=== PATIENT | male | born 1965 | race Caucasian/White ===

== ENCOUNTER 2018-06-27 13:19 | Inpatient (IN) ==
[2018-06-27] MEDS ORDERED: Mag Sulf 1 gm/100 ml Premix 100 ML IV.SIG ONE (13:23)
[2018-06-27] MEDS ORDERED: MethylPREDNISolone Sod Succinate Inj 125 MG/2 ML Vial IV.PUSH ONE (13:23)
--- NOTE | 2018-06-27 13:28 | ED ---
HPI General Chief Complaint: Respiratory Symptoms Stated Complaint: respiratory Time Seen by Provider: 06/27/18 13:23 Source: patient Mode of arrival: wheelchair Limitations: other (Severity) History of Present Illness Patient states that he had shortness of breath over the past 2 days onset last night. Patient has been intubated 5 times in the past for similar COPD exacerbations. However he decided that this time he would come in sooner rather than later. Patient states that he is not oxygen dependent. MD Complaint: Reports shortness of breath Onset (ago): day(s) Context: Reports recent illness Severity: severe Consistency/Duration: constant Relieving factors: bronchodilators Exacerbating factors: nothing Known history of: Reports COPD Associated symptoms: Reports denies other symptoms Treatment prior to arrival: Reports none Related Data Home oxygen amount: none Home Medications Medication Instructions Recorded Confirmed warfarin [Coumadin] 5 mg PO Q OTHER DAY 06/27/18 06/27/18 warfarin [Coumadin] 7.5 mg PO Q OTHER DAY 06/27/18 06/27/18 Allergies Allergy/AdvReac Type Severity Reaction Status Date / Time No Known Allergies Allergy Verified 06/27/18 13:56 Review of Systems ROS Unobtainable ROS Unobtainable: other (Unobtainable due to severity of distress) PMFSH History History Provided By: Patient Medical History Medical History COPD (chronic obstructive pulmonary disease) (Acute) Chest pain (Acute) PTSD (post-traumatic stress disorder) (Acute) Pulmonary embolism (Acute) Surgical History Surgical History Hx of CABG (Acute) Social History Social History Substance History: No History of Abuse Smoking Status: Never smoker How Often Do You Have a Drink Containing Alcohol: Never Recent Travel in [place] within the Last 8 Weeks: No Recent Out of Country Travel within the Last 8 Weeks: No Exam Narrative Exam Narrative: GENERAL: -Portuguese male in severe respiratory distress SKIN: Warm and dry. HEAD: Atraumatic. Normocephalic. EYES: Pupils equal and round. No scleral icterus. No injection or drainage. ENT: No nasal bleeding or discharge. Mucous membranes pink and moist. NECK: Trachea midline. No JVD. CARDIOVASCULAR: Tachycardic rate regular rhythm. no rubs or gallops RESPIRATORY: Suprasternal accessory muscle use. Bilateral wheezing diffusely heard throughout lung darling on auscultation. Moderately decreased tidal volume bilaterally . Pursed lip breathing tripoding 1 word dyspnea GASTROINTESTINAL: Abdomen soft, non-tender, nondistended. No rebound or guarding MUSCULOSKELETAL: Extremities without clubbing, cyanosis, or edema. No obvious deformities. NEUROLOGICAL: Awake and alert. No obvious cranial nerve deficits. Motor grossly within normal limits. Five out of 5 muscle strength in the arms and legs. Normal speech. PSYCHIATRIC: Appropriate mood and affect; insight and judgment normal. Course Initial Documented Vital Signs Temperature 99.8 F H 06/27/18 13:23 Pulse Rate 110 H 06/27/18 13:23 Respiratory Rate 21 06/27/18 13:23 Blood Pressure 162/85 H 06/27/18 13:23 Pulse Oximetry 88 L 06/27/18 13:23 Last Documented Vital Signs Temperature 99.8 F H 06/27/18 13:28 Pulse Rate 107 H 06/27/18 14:36 Respiratory Rate 22 06/27/18 14:36 Blood Pressure 162/85 H 06/27/18 13:28 Pulse Oximetry 92 L 06/27/18 13:33 Critical Care Time Critical Care Time: Yes Total Critical Care Time: 60 Attestation: Aggregate critical care time was 60 minutes. Time to perform other separately billable procedures was not included in the critical care time. My time did not include minutes spent treating any other patients simultaneously or on activities that did not directly contribute to the patient's treatment. The services I provided to this patient were to treat and/or prevent clinically significant deterioration I provided critical care services requiring my management, as noted below: Chart data review, documentation time, medication orders and management, vital sign assessments/reviewing monitor data, ordering and reviewing lab tests, ordering and interpreting/reviewing x-rays and diagnostic studies, care of the patient and discussion of the patient with the admitting physicians. Medical Decision Making MDM Narrative Medical decision making narrative: No leukocytosis no anemia normal platelet count neutrophilia of 88% INR 2.7 Electrolytes within normal limits. Lactic acid normal. Elevated creatinine 1.74 decreased GFR consistent with renal insufficiency AST elevated at 200 and with normal ALT of 60 suspicious for alcohol related hepatitis Total CPK 6595 suggestive of rhabdo CK-MB and troponin negative Normal pancreatic enzymes Chest x-ray read by radiologist as patchy airspace disease right lower lobe On reevaluation the patient's pulse oximetry is reading 92% on 2 L after the patient received aggressive treatment with 2 hour-long nebulizer treatments, Solu-Medrol 125, magnesium 1 g, Rocephin IV, azithromycin IV,... Originally the patient's pulse ox was 85-88 on room air prior to all his breathing treatments and antibiotics Medical Screen Exam Complete: Yes Emergency Medical Condition: Yes Medical Records Medical records reviewed: Yes I reviewed the patient's medical records. Lab Data Result diagrams: 06/27/18 14:04 06/27/18 14:04 Lab Results 06/27/18 06/27/18 06/27/18 Range/Units 14:04 14:04 14:04 WBC 8.2 (4.0-11.0) th/mm3 RBC 5.13 (4.50-5.90) mil/mm3 Hgb 14.5 (13.0-17.0) gm/dL Hct 44.5 (39.0-51.0) % MCV 86.9 (80.0-100.0) fL MCH 28.3 (27.0-34.0) pg MCHC 32.6 (32.0-36.0) % RDW 14.0 (11.6-17.2) % Plt Count 275 (150-450) th/mm3 MPV 8.6 (7.0-11.0) fL Neut % (Auto) 87.8 H (16.0-70.0) % Lymph % (Auto) 8.3 L (9.0-44.0) % [place] % (Auto) 3.3 (0.0-8.0) % Eos % (Auto) 0.2 (0.0-4.0) % Baso % (Auto) 0.4 (0.0-2.0) % Neut # (Auto) 7.2 (1.8-7.7) th/mm3 Lymph # (Auto) 0.7 L (1.0-4.8) th/mm3 [place] # (Auto) 0.3 (0.0-0.9) th/mm3 Eos # (Auto) 0.0 (0.0-0.4) th/mm3 Baso # (Auto) 0.0 (0.0-0.2) th/mm3 WBC Differential . Differential Comment Auto diff final PT 27.2 H (9.8-11.6) sec INR 2.7 Ratio APTT 41.3 H (23.4-31.7) sec Sodium 141 (136-145) meq/L Potassium 4.0 (3.5-5.1) meq/L Chloride 106 (98-107) meq/L Carbon Dioxide 26.6 (21.0-32.0) meq/L Anion Gap 8 (5-15) meq/L BUN 19 H (7-18) mg/dL Creatinine 1.74 H (0.60-1.30) mg/dL Estimated GFR 41 L (>89) mL/min Random Glucose 114 H (74-106) mg/dL Lactic Acid (0.4-2.0) mmol/L Calcium 8.0 L (8.5-10.1) mg/dL Total Bilirubin 1.2 H (0.2-1.0) mg/dL AST 200 H (15-37) U/L ALT 60 (12-78) U/L Alkaline Phosphatase 61 (45-117) U/L Total Creatine Kinase 6595 H (39-308) U/L CK-MB (CK-2) 63.3 H (0.5-3.6) ng/mL CK-MB (CK-2) % 1.0 (0.0-4.0) % Troponin I Less than 0.02 L (0.02-0.05) ng/mL B-Natriuretic Peptide (0-100) pg/mL Total Protein 7.5 (6.4-8.2) g/dL Albumin 3.8 (3.4-5.0) g/dL Lipase 55 L (73-393) U/L 06/27/18 06/27/18 Range/Units 14:04 14:53 WBC (4.0-11.0) th/mm3 RBC (4.50-5.90) mil/mm3 Hgb (13.0-17.0) gm/dL Hct (39.0-51.0) % MCV (80.0-100.0) fL MCH (27.0-34.0) pg MCHC (32.0-36.0) % RDW (11.6-17.2) % Plt Count (150-450) th/mm3 MPV (7.0-11.0) fL Neut % (Auto) (16.0-70.0) % Lymph % (Auto) (9.0-44.0) % [place] % (Auto) (0.0-8.0) % Eos % (Auto) (0.0-4.0) % Baso % (Auto) (0.0-2.0) % Neut # (Auto) (1.8-7.7) th/mm3 Lymph # (Auto) (1.0-4.8) th/mm3 [place] # (Auto) (0.0-0.9) th/mm3 Eos # (Auto) (0.0-0.4) th/mm3 Baso # (Auto) (0.0-0.2) th/mm3 WBC Differential Differential Comment PT (9.8-11.6) sec INR Ratio APTT (23.4-31.7) sec Sodium (136-145) meq/L Potassium (3.5-5.1) meq/L Chloride (98-107) meq/L Carbon Dioxide (21.0-32.0) meq/L Anion Gap (5-15) meq/L BUN (7-18) mg/dL Creatinine (0.60-1.30) mg/dL Estimated GFR (>89) mL/min Random Glucose (74-106) mg/dL Lactic Acid 1.5 (0.4-2.0) mmol/L Calcium (8.5-10.1) mg/dL Total Bilirubin (0.2-1.0) mg/dL AST (15-37) U/L ALT (12-78) U/L Alkaline Phosphatase (45-117) U/L Total Creatine Kinase (39-308) U/L CK-MB (CK-2) (0.5-3.6) ng/mL CK-MB (CK-2) % (0.0-4.0) % Troponin I (0.02-0.05) ng/mL B-Natriuretic Peptide 47 (0-100) pg/mL Total Protein (6.4-8.2) g/dL Albumin (3.4-5.0) g/dL Lipase (73-393) U/L Imaging Data Radiologist's impression: Chest X-Ray 06/27/18 13:23 CONCLUSION: Patchy airspace disease right lower lobe suspicious for inflammatory process Discharge Plan Discharge Disposition Patient Disposition: ED Admit(ED Internal Use Only) Discharge Condition Condition: Fair Discharge Details Diagnosis: COPD exacerbation, Hypoxemia, RLL pneumonia Physicians Team ED Provider: Rosalio Mckee Primary Care Provider: [facility] /Orders / Referrals /Forms Prescriptions: No Action warfarin [Coumadin] 7.5 mg Tablet 7.5 mg PO Q OTHER DAY RF: 0 warfarin [Coumadin] 5 mg Tablet 5 mg PO Q OTHER DAY RF: 0 Status ED Status: With Doctor
--- NOTE | 2018-06-27 13:50 | XR ---
EXAM DATE: 06/27/2018 1:47 PM EST AGE/SEX: 53 years / Male INDICATIONS: Short of breath. CLINICAL DATA: This is the patient's initial encounter. Patient reports that signs and symptoms have been present for 1 day and indicates a pain score of 0/10. MEDICAL/SURGICAL HISTORY: Cardiovascular disease. CABG. COMPARISON: No prior exams available for comparison. FINDINGS: Sternal wires from previous bypass are noted. The heart is minimally enlarged. The left lung is clear Patchy alveolar airspace disease in the right lower lobe suspicious for inflammatory process. There is no pneumothorax or pleural effusion The portion of the bony skeleton visualized is unremarkable. CONCLUSION: Patchy airspace disease right lower lobe suspicious for inflammatory process Electronically signed by: Reuben Romano MD Board Certified Radiologist 06/27/2018 1:49 PM EST
[2018-06-27] MEDS ORDERED: Azithromycin Inj 500 MG in Sodium Chlor 0.9% Inj 250 ML IV.SIG ONE (14:03)
[2018-06-27] MEDS ORDERED: Famotidine PF Inj 20 MG/2 ML Vial IV.PUSH ONE (14:09)
[2018-06-27] MEDS ORDERED: Sodium Chlor 0.9% Inj 500 ML IV.SIG SCH (15:00)
[2018-06-27 15:26] LABS: Baso % (Auto) 0.4 % (0.0-2.0); Eos % (Auto) 0.2 % (0.0-4.0); Hematocrit 44.5 % (39.0-51.0); Hemoglobin 14.5 gm/dL (13.0-17.0); Lymph # (Auto) 0.7 th/mm3 (1.0-4.8); Lymph % (Auto) 8.3 % (9.0-44.0); Mean Corpuscular HGB Conc 32.6 % (32.0-36.0); Mean Corpuscular Hemoglobin 28.3 pg (27.0-34.0); Mean Corpuscular Volume 86.9 fL (80.0-100.0); Mean Platelet Volume 8.6 fL (7.0-11.0); Mono # (Auto) 0.3 th/mm3 (0.0-0.9); Mono % (Auto) 3.3 % (0.0-8.0); Neut # (Auto) 7.2 th/mm3 (1.8-7.7); Neut % (Auto) 87.8 % (16.0-70.0); Platelet Count 275 th/mm3 (150-450); Red Blood Count 5.13 mil/mm3 (4.50-5.90); White Blood Count 8.2 th/mm3 (4.0-11.0)
[2018-06-27 15:30] LABS: Activated Partial Thrombo Time 41.3 sec (23.4-31.7); INR 2.7 Ratio; Prothrombin Time 27.2 sec (9.8-11.6)
[2018-06-27 15:35] LABS: Alanine Aminotransferase 60 U/L (12-78); Albumin 3.8 g/dL (3.4-5.0); Anion Gap 8 meq/L (5-15); Aspartate Aminotransferase 200 U/L (15-37); Blood Urea Nitrogen 19 mg/dL (7-18); Carbon Dioxide 26.6 meq/L (21.0-32.0); Chloride 106 meq/L (98-107); Glomerular Filtration Rate 41 mL/min (>89); Glucose,Random 114 mg/dL (74-106); Lipase 55 U/L (73-393); Sodium 141 meq/L (136-145)
[2018-06-27 15:49] LABS: Alkaline Phosphatase 61 U/L (45-117); Creatine Kinase 6595 U/L (39-308); Total Protein 7.5 g/dL (6.4-8.2)
[2018-06-27 16:02] LABS: Creatine Kinase MB 63.3 ng/mL (0.5-3.6)
[2018-06-27] MEDS ORDERED: Warfarin Consult Pharmacy OTHER PRN (16:35)
--- NOTE | 2018-06-27 16:47 | P.HPIM ---
History of Present Illness Primary Care Physician: [facility] Chief Complaint: shortness of breath History of Present Illness: patient is a 53 y/o male with history of PE,CAD,COPD ,PTSD who presented to ER with shortness of breath. he says that his sob started yesterday and got worse. he says that he has a nebulizer but it's broken. he has productive cough of yellowish sputum. he had a low grade fever at presentation. he denies any chest pain. he says that he was intubated in the past because of his COPD.per ER his pulse ox was about 88% at the time of presentation. Inpatient Certification Inpatient Certification: I certify that the inpatient services were ordered in accordance with Medicare regulations governing the order. This includes certification that hospital inpatient services are reasonable and necessary and in the case of services not specified as inpatient-only under 42 CFR 419.22(n), that they are appropriately provided as inpatient services in accordance to with the 2-midnight benchmark under 43 CFR 412.3(e) Estimated Total Length of Stay (Days): 2 Plans for Post Hospital Care: Home Review of Systems Review of Systems: all other systems reviewed are negative [facility] Medical History Medical History COPD (chronic obstructive pulmonary disease) (Acute) Chest pain (Acute) PTSD (post-traumatic stress disorder) (Acute) Pulmonary embolism (Acute) Surgical History Surgical History Hx of CABG (Acute) Social History Social History Substance History: No History of Abuse Smoking Status: Never smoker How Often Do You Have a Drink Containing Alcohol: Never Recent Travel in [place] within the Last 8 Weeks: No Recent Out of Country Travel within the Last 8 Weeks: No Immunization History Tetanus Immunization: >5 Years Medications and Allergies Allergies Allergy/AdvReac Type Severity Reaction Status Date / Time No Known Allergies Allergy Verified 06/27/18 13:56 Home Medications Medication Instructions Recorded Confirmed Type fluoxetine 40 mg PO DAILY 06/27/18 06/27/18 History folic acid 1 mg PO DAILY 06/27/18 06/27/18 History prazosin 2 mg PO HS 06/27/18 06/27/18 History quetiapine 400 mg PO HS 06/27/18 06/27/18 History thiamine HCl (vitamin B1) 100 mg PO DAILY 06/27/18 06/27/18 History warfarin See Label Instructions .ROUTE 06/27/18 06/27/18 History .COMPLEX warfarin [Coumadin] 7.5 mg PO Q OTHER DAY 06/27/18 06/27/18 History Active Medications: Active Medications Albuterol (Albuterol Neb (Prn)) 1.25 mg NEB Q2HR NEB PRN PRN Reason: sob Albuterol (Duoneb Neb (Lamar)) 1 ampul NEB Q4HR NEB LAMAR Azithromycin 500 mg/ Sodium (Chloride) 250 mls @ 250 mls/hr IV.SIG Q24H [facility] Ceftriaxone Sodium 1,000 mg/ (Sodium Chloride) 100 mls @ 200 mls/hr IV.SIG Q24H [facility] Sodium Chloride (Ns Inj) 1,000 mls @ 125 mls/hr IV.CONT .Q8H [facility] Methylprednisolone Sodium Succinate (Solumedrol Inj) 60 mg IV.PUSH Q8HR [facility] Pharmacy Profile Note (Coumadin Consult Pharmacy) 1 each OTHER UNSCH PRN PRN Reason: PHARMACY DOCUMENTATION Sodium Chloride (Ns Flush) 2 ml IV.FLUSH UNSCH PRN PRN Reason: FLUSH AFTER USING IV ACCESS Physical Exam Vital signs: Vital Signs 06/27/18 13:23 06/27/18 13:28 06/27/18 13:31 Temperature 99.8 F H 99.8 F H Pulse Rate 110 H 104 H 103 H Respiratory Rate 21 18 Blood Pressure 162/85 H 162/85 H Pulse Oximetry 88 L 91 L 941 H 06/27/18 13:32 06/27/18 13:33 06/27/18 13:37 Temperature Pulse Rate 101 H 99 H Respiratory Rate 22 20 Blood Pressure Pulse Oximetry 91 L 92 L 06/27/18 14:04 06/27/18 14:18 06/27/18 14:25 Temperature Pulse Rate 99 H 109 H 108 H Respiratory Rate 22 22 22 Blood Pressure Pulse Oximetry 06/27/18 14:36 Temperature Pulse Rate 107 H Respiratory Rate 22 Blood Pressure Pulse Oximetry Intake & Output 06/26/18 06/27/18 06/27/18 18:59 06:59 18:59 Weight 98.43 kg Constitutional mild distress Routine HEENT Exam Eye: Present PERRL Routine Neck Exam Present supple Routine Respiratory Exam Present prolonged expiratory phase and wheezes Routine Cardiovascular Exam Present tachycardia Routine Abdominal Exam Present soft Routine Extremities Exam Comments: no pedal edema. Routine Neurological Exam Present alert and oriented X3 Results Labs CBC & Chem 7: 06/27/18 14:04 06/27/18 14:04 Imaging Impressions Chest X-Ray 06/27/18 13:23 CONCLUSION: Patchy airspace disease right lower lobe suspicious for inflammatory process Caprini VTE Risk Assessment Caprini VTE Risk Assessment: Moderate/High Risk (score >= 2) Caprini Risk Assessment Model: Point Value = 1 Point Value = 2 Point Value = 3 Point Value = 5 Age 41-60 Minor surgery BMI > 25 kg/m2 Swollen legs Varicose veins or History of unexplained or recurrent spontaneous Oral contraceptives or hormone replacement Sepsis (< 1 month) Serious lung disease, including pneumonia (< 1 month) Abnormal pulmonary function Acute myocardial infarction Congestive heart failure (< 1 month) History of inflammatory bowel disease Medical patient at bed rest Age 61-74 Arthroscopic surgery Major open surgery (> 45 min) Laparoscopic surgery (> 45 min) Malignancy Confined to bed (> 72 hours) Immobilizing plaster cast Central venous access Age >= 75 History of VTE Family history of VTE Factor V Leiden Prothrombin [id number] Lupus anticoagulant Anticardiolipin antibodies Elevated serum homocysteine Heparin-induced thrombocytopenia Other congenital or acquired thrombophilia Stroke (< 1 month) Elective arthroplasty Hip, pelvis, or leg fracture Acute spinal cord injury (< 1 month) Prophylaxis Regimen: Total Risk Factor Score Risk Level Prophylaxis Regimen 0-1 Low Early ambulation 2 Moderate Order ONE of the following: *Sequential Compression Device (SCD) *Heparin 5000 units SQ BID 3-4 Higher Order ONE of the following medications: *Heparin 5000 units SQ TID *Enoxaparin/Lovenox 40 mg SQ daily (WT < 150 kg, CrCl > 30 mL/min) *Enoxaparin/Lovenox 30 mg SQ daily (WT < 150 kg, CrCl > 10-29 mL/min) *Enoxaparin/Lovenox 30 mg SQ BID (WT < 150 kg, CrCl > 30 mL/min) AND/OR *Sequential Compression Device (SCD) 5 or more Highest Order ONE of the following medications: *Heparin 5000 units SQ TID (Preferred with Epidurals) *Enoxaparin/Lovenox 40 mg SQ daily (WT < 150 kg, CrCl > 30 mL/min) *Enoxaparin/Lovenox 30 mg SQ daily (WT < 150 kg, CrCl > 10-29 mL/min) *Enoxaparin/Lovenox 30 mg SQ BID (WT < 150 kg, CrCl > 30 mL/min) AND *Sequential Compression Device (SCD) Assessment and Plan Plan A/P - acute hypoxemic respiratory failure due to pneumonia ( community-acquired ) and COPD exacerbation keep on oxygen to keep O2sat > 90%- continue with IV antibiotics and neb treatment- continue IV steroids- will follow the cultures. -PE- on Coumadin with therapeutic INR will verify the home dosage and consult pharmacy to assist with dosing. -renal insufficiency with unknown duration start on IV fluid and monitor the renal function -rhabdomyolysis continue IV fluid- monitor the CPK level and renal function. -PTSD will verify and resume the home meds. DVT prophylaxis; on Coumadin. Discussed Condition With: ER physician and the patient. Discharge Planning: home when stable.
[2018-06-27] MEDS: Sod Chloride 0.9% Inj 1,000 ML IV.CONT SCH (18:01)
--- NOTE | 2018-06-27 19:42 | ECG ---
Date Performed: 06/27/2018 Time Performed: 15:06:48 PTAGE: 53 years EKG: SINUS TACHYCARDIA WITH FIRST DEGREE AV BLOCK NONSPECIFIC T-WAVE ABNORMALITY ABNORMAL ECG NO PREVIOUS TRACING DOCTOR: Kiersten Mendez Interpretating Date/Time 06/27/2018 19:40:30
[2018-06-27 19:52] LABS: Bacteria,Urine Occasional /hpf; Bilirubin,Urine Negative (Negative); Clarity,Urine Clear (Clear); Color,Urine Yellow (Yellw/Straw); Glucose,Urine (UA) 150 mg/dL (Negative); Leukocyte Esterase,Urine Moderate (Negative); Mucus,Urine Few /lpf (Occasional); Nitrite,Urine Negative (Negative); Specific Gravity,Urine 1.009 (1.002-1.035)
[2018-06-27 19:53] LABS: Amphetamine Screen,Urine Neg (Neg); Barbiturate Screen,Urine Neg (Neg); Cannabinoid Screen,Urine Neg (Neg); Cocaine Screen,Urine Neg (Neg)
[2018-06-27 19:55] LABS: Opiate Screen,Urine Neg (Neg)
[2018-06-27] MEDS: MethylPREDNISolone Sod Succinate Inj 125 MG/2 ML Vial IV.PUSH SCH (20:29)
[2018-06-28] MEDS: Sod Chloride 0.9% Inj 1,000 ML IV.CONT SCH ×3 (00:59→17:41)
[2018-06-28] MEDS: MethylPREDNISolone Sod Succinate Inj 125 MG/2 ML Vial IV.PUSH SCH ×3 (05:36→22:15)
[2018-06-28 06:25] LABS: Hemoglobin 12.2 gm/dL (13.0-17.0); Lymph # (Auto) 0.9 th/mm3 (1.0-4.8); Lymph % (Auto) 6.3 % (9.0-44.0); Mean Corpuscular HGB Conc 32.9 % (32.0-36.0); Mean Corpuscular Hemoglobin 28.1 pg (27.0-34.0); Mean Corpuscular Volume 85.4 fL (80.0-100.0); Mono % (Auto) 7.2 % (0.0-8.0); Neut # (Auto) 12.1 th/mm3 (1.8-7.7); Neut % (Auto) 86.5 % (16.0-70.0); Platelet Count 236 th/mm3 (150-450); Red Blood Count 4.34 mil/mm3 (4.50-5.90); Red Cell Distribution Width 13.8 % (11.6-17.2)
[2018-06-28 06:54] LABS: Alanine Aminotransferase 51 U/L (12-78); Albumin 2.7 g/dL (3.4-5.0); Anion Gap 5 meq/L (5-15); Aspartate Aminotransferase 110 U/L (15-37); Blood Urea Nitrogen 17 mg/dL (7-18); Calcium 8.1 mg/dL (8.5-10.1); Carbon Dioxide 24.7 meq/L (21.0-32.0); Chloride 112 meq/L (98-107); Glomerular Filtration Rate 62 mL/min (>89); Glucose,Random 117 mg/dL (74-106); Potassium 4.6 meq/L (3.5-5.1); Sodium 142 meq/L (136-145)
[2018-06-28 07:06] LABS: Alkaline Phosphatase 49 U/L (45-117); Creatine Kinase 3379 U/L (39-308); Total Protein 5.9 g/dL (6.4-8.2)
[2018-06-28 07:24] LABS: CKMB Percent 0.6 % (0.0-4.0); Creatine Kinase MB 21.4 ng/mL (0.5-3.6)
[2018-06-28] MEDS: FLUoxetine 20 MG Capsule PO SCH (09:18)
[2018-06-28] MEDS: Folic Acid 1 MG Tablet PO SCH (09:18)
[2018-06-28] MEDS: Azithromycin Inj 500 MG in Sodium Chlor 0.9% Inj 250 ML IV.SIG SCH (14:34)
--- NOTE | 2018-06-28 18:27 | P.PNIM ---
Subjective Interval history: In bed some sob, no fever or chills./ No n/v/d/c. No wheezing . Has some generalized pain . Some sob, No fever or chills. No abd pain Physical Exam Vital signs: Vital Signs 06/27/18 18:59 06/27/18 20:38 06/27/18 21:00 Temperature Pulse Rate 94 H 94 H 92 H Respiratory Rate 16 16 Blood Pressure 112/58 L Pulse Oximetry 96 06/27/18 22:00 06/27/18 23:00 06/27/18 23:44 Temperature 98 F Pulse Rate 89 87 86 Respiratory Rate 20 Blood Pressure 118/71 Pulse Oximetry 94 L 06/28/18 00:00 06/28/18 00:56 06/28/18 02:00 Temperature Pulse Rate 82 74 79 Respiratory Rate Blood Pressure Pulse Oximetry 06/28/18 03:00 06/28/18 04:00 06/28/18 05:00 Temperature 98.7 F Pulse Rate 74 71 74 Respiratory Rate 18 Blood Pressure 120/68 Pulse Oximetry 93 L 06/28/18 06:00 06/28/18 07:00 06/28/18 07:41 Temperature Pulse Rate 78 66 Respiratory Rate Blood Pressure Pulse Oximetry 97 06/28/18 07:43 06/28/18 07:47 06/28/18 07:50 Temperature Pulse Rate 96 H 68 Respiratory Rate 16 16 14 Blood Pressure 115/68 Pulse Oximetry 97 95 06/28/18 08:00 06/28/18 09:00 06/28/18 10:00 Temperature Pulse Rate 66 64 64 Respiratory Rate Blood Pressure Pulse Oximetry 06/28/18 11:00 06/28/18 12:00 06/28/18 13:00 Temperature 97.9 F Pulse Rate 63 64 68 Respiratory Rate 19 Blood Pressure 117/70 Pulse Oximetry 95 06/28/18 13:20 06/28/18 14:00 06/28/18 15:38 Temperature Pulse Rate 65 84 64 Respiratory Rate 18 Blood Pressure Pulse Oximetry 06/28/18 15:47 06/28/18 15:52 06/28/18 16:00 Temperature 97.0 F L Pulse Rate 83 82 74 Respiratory Rate 16 17 Blood Pressure 119/66 Pulse Oximetry 96 Intake & Output 06/27/18 06/28/18 06/28/18 18:59 06:59 18:59 Intake Total 950 / 950 1480 / 1480 1350 / 1350 Output Total 600 / 600 Balance 950 / 950 880 / 880 1350 / 1350 Weight 98.43 kg 99.3 kg 97.522 kg Intake: IV 950 / 950 1000 / 1000 1350 / 1350 NS Inj 1,000 ML @ 125 mls/hr IV 1000 / 1000 1000 / 1000 .CONT .Q8H [facility] Rx#:[id number] Azithromycin Inj 500 MG In NS 250 / 250 250 / 250 Inj 250 ML @ 250 mls/hr IV.SIG Q24H [facility] Rx#:[id number] Magnesium Sulfate 1 gm/D5W 100 100 / 100 ml Premix 100 ML @ 100 mls/hr IV.SIG ONCE ONE Rx#:[id number] NS Inj 500 ML @ 1000 mls/hr IV. 500 / 500 SIG BOLUS [facility] Rx#:[id number] Rocephin Inj 1,000 MG In NS Inj 100 / 100 100 / 100 100 ML @ 200 mls/hr IV.SIG Q24H [facility] Rx#:[id number] Oral 480 / 480 Output: Urine 600 / 600 Other: Weight On Admission 97.522 kg Narrative: GENERAL: Pleasant 53-year-old male, in bed appears in not acute distress, sleepy. CARDIOVASCULAR: Regular rate and rhythm. RESPIRATORY: No accessory muscle use. Clear to auscultation. Breath sounds equal bilaterally. GASTROINTESTINAL: Abdomen soft, non-tender, nondistended. Hepatic and splenic margins not palpable. MUSCULOSKELETAL: Extremities without clubbing, cyanosis, or edema. No obvious deformities. NEUROLOGICAL: Awake and alert. No obvious cranial nerve deficits. Motor grossly within normal limits. Normal speech. PSYCHIATRIC: Appropriate mood and affect; insight and judgment normal. Results Labs CBC & Chem 7: 06/28/18 05:41 06/28/18 05:47 Labs: Microbiology 06/27/18 18:00 Clean Catch Urine Urine Culture - Preliminary Immature growth - reincubate 06/27/18 14:45 Blood - Peripheral Aerobic Blood Culture - Preliminary No growth in 1 day 06/27/18 14:45 Blood - Peripheral Anaerobic Blood Culture - Preliminary No growth in 1 day 06/27/18 14:53 Blood - Peripheral Aerobic Blood Culture - Preliminary No growth in 1 day 06/27/18 14:53 Blood - Peripheral Anaerobic Blood Culture - Preliminary No growth in 1 day Assessment and Plan Plan Acute hypoxemic respiratory failure due to pneumonia ( community-acquired ) and COPD exacerbation keep on oxygen to keep O2sat > 90%- continue with IV antibiotics and neb treatment- continue IV steroids- will follow the cultures. -PE- on Coumadin with therapeutic INR will verify the home dosage and consult pharmacy to assist with dosing. Renal insufficiency with unknown duration start on IV fluid and monitor the renal function Rhabdomyolysis continue IV fluid- monitor the CPK level and renal function. -PTSD will verify and resume the home meds.
[2018-06-28] MEDS: Acetaminophen 325 MG Tablet PO PRN (18:37)
[2018-06-29] MEDS: Sod Chloride 0.9% Inj 1,000 ML IV.CONT SCH ×3 (00:28→17:43)
[2018-06-29] MEDS: MethylPREDNISolone Sod Succinate Inj 125 MG/2 ML Vial IV.PUSH SCH ×3 (05:13→21:34)
[2018-06-29] MEDS: FLUoxetine 20 MG Capsule PO SCH (09:51)
[2018-06-29] MEDS: Acetaminophen 325 MG Tablet PO PRN (09:51)
[2018-06-29] MEDS: Folic Acid 1 MG Tablet PO SCH (09:51)
[2018-06-29 10:26] LABS: Baso % (Auto) 0.1 % (0.0-2.0); Hematocrit 39.2 % (39.0-51.0); Hemoglobin 12.9 gm/dL (13.0-17.0); Lymph # (Auto) 0.9 th/mm3 (1.0-4.8); Lymph % (Auto) 6.6 % (9.0-44.0); Mean Corpuscular HGB Conc 32.9 % (32.0-36.0); Mean Corpuscular Hemoglobin 28.5 pg (27.0-34.0); Mean Corpuscular Volume 86.8 fL (80.0-100.0); Mean Platelet Volume 8.4 fL (7.0-11.0); Mono # (Auto) 0.6 th/mm3 (0.0-0.9); Mono % (Auto) 4.2 % (0.0-8.0); Neut # (Auto) 12.2 th/mm3 (1.8-7.7); Neut % (Auto) 89.1 % (16.0-70.0); Platelet Count 259 th/mm3 (150-450); Red Blood Count 4.51 mil/mm3 (4.50-5.90); Red Cell Distribution Width 14.1 % (11.6-17.2); White Blood Count 13.7 th/mm3 (4.0-11.0)
[2018-06-29 10:38] LABS: INR 3.6 Ratio; Prothrombin Time 36.7 sec (9.8-11.6)
[2018-06-29 10:50] LABS: Carbon Dioxide 24.5 meq/L (21.0-32.0)
[2018-06-29 11:20] LABS: CKMB Percent 0.5 % (0.0-4.0); Creatine Kinase MB 6.6 ng/mL (0.5-3.6)
[2018-06-29] MEDS: Azithromycin Inj 500 MG in Sodium Chlor 0.9% Inj 250 ML IV.SIG SCH (15:37)
[2018-06-30] MEDS: MethylPREDNISolone Sod Succinate Inj 125 MG/2 ML Vial IV.PUSH SCH ×2 (05:32→20:23)
[2018-06-30] MEDS: Sod Chloride 0.9% Inj 1,000 ML IV.CONT SCH ×2 (05:34→09:21)
[2018-06-30 08:33] LABS: Baso % (Auto) 0.1 % (0.0-2.0); Hemoglobin 12.6 gm/dL (13.0-17.0); Lymph % (Auto) 7.6 % (9.0-44.0); Mean Corpuscular HGB Conc 33.1 % (32.0-36.0); Mean Corpuscular Hemoglobin 28.3 pg (27.0-34.0); Mean Corpuscular Volume 85.3 fL (80.0-100.0); Mean Platelet Volume 8.8 fL (7.0-11.0); Mono % (Auto) 7.3 % (0.0-8.0); Neut # (Auto) 11.5 th/mm3 (1.8-7.7); Platelet Count 251 th/mm3 (150-450); Red Blood Count 4.46 mil/mm3 (4.50-5.90); Red Cell Distribution Width 13.8 % (11.6-17.2); White Blood Count 13.5 th/mm3 (4.0-11.0)
[2018-06-30 09:08] LABS: Carbon Dioxide 24.2 meq/L (21.0-32.0); INR 4.6 Ratio; Potassium 4.1 meq/L (3.5-5.1); Prothrombin Time 46.5 sec (9.8-11.6)
[2018-06-30] MEDS: FLUoxetine 20 MG Capsule PO SCH (09:20)
[2018-06-30] MEDS: Folic Acid 1 MG Tablet PO SCH (09:20)
[2018-06-30 09:21] LABS: Calcium 8.6 mg/dL (8.5-10.1)
[2018-06-30 09:37] LABS: CKMB Percent 0.3 % (0.0-4.0)
--- NOTE | 2018-06-30 12:20 | P.PNIM ---
Subjective Interval history: Late entry: the patient was seen on 06/29/2018 at noon The patient is still with sob and complaints of muscle cramps. No abd cramps able to eat. With nausea no vomiting. No fevr or chills. No urinary complaints. Physical Exam Vital signs: Vital Signs 06/29/18 13:00 06/29/18 14:00 06/29/18 15:00 Temperature Pulse Rate 80 64 60 Respiratory Rate Blood Pressure Pulse Oximetry 06/29/18 16:00 06/29/18 16:50 06/29/18 17:00 Temperature 98.7 F Pulse Rate 57 L 72 60 Respiratory Rate 16 16 Blood Pressure 161/86 H Pulse Oximetry 96 06/29/18 18:00 06/29/18 19:00 06/29/18 20:00 Temperature Pulse Rate 56 L 96 H 62 Respiratory Rate 16 Blood Pressure 143/79 H Pulse Oximetry 95 06/29/18 20:22 06/29/18 21:00 06/29/18 22:00 Temperature Pulse Rate 70 62 78 Respiratory Rate 18 Blood Pressure Pulse Oximetry 94 L 06/29/18 23:00 06/29/18 23:31 06/30/18 00:00 Temperature 98.5 F Pulse Rate 61 72 56 L Respiratory Rate 16 18 Blood Pressure 111/44 L Pulse Oximetry 95 06/30/18 01:00 06/30/18 02:00 06/30/18 03:00 Temperature Pulse Rate 70 70 66 Respiratory Rate Blood Pressure Pulse Oximetry 06/30/18 04:00 06/30/18 05:00 06/30/18 06:00 Temperature Pulse Rate 62 60 57 L Respiratory Rate Blood Pressure 144/78 H Pulse Oximetry 94 L 06/30/18 07:00 06/30/18 08:00 06/30/18 09:00 Temperature 98.3 F Pulse Rate 55 L 52 L 50 L Respiratory Rate 16 Blood Pressure 156/88 H Pulse Oximetry 95 06/30/18 09:12 06/30/18 10:00 06/30/18 11:00 Temperature Pulse Rate 56 L 52 L 59 L Respiratory Rate 24 Blood Pressure Pulse Oximetry 94 L 06/30/18 12:00 06/30/18 12:18 06/30/18 12:19 Temperature 98.2 F Pulse Rate 59 L 55 L Respiratory Rate 16 20 Blood Pressure 157/85 H Pulse Oximetry 94 L 96 Intake & Output 06/29/18 06/30/18 06/30/18 18:59 06:59 18:59 Intake Total 1850 / 1850 1180 / 1180 1000 / 1000 Output Total 820 / 820 1060 / 1060 Balance 1030 / 1030 120 / 120 1000 / 1000 Weight 103.1 kg Intake: IV 1100 / 1100 700 / 700 1000 / 1000 NS Inj 1,000 ML @ 125 mls/hr IV 1000 / 1000 700 / 700 1000 / 1000 .CONT .Q8H [facility] Rx#:[id number] Azithromycin Inj 500 MG In NS 100 / 100 Inj 250 ML @ 250 mls/hr IV.SIG Q24H [facility] Rx#:[id number] Oral 750 / 750 480 / 480 Output: Urine 820 / 820 1060 / 1060 Other: Date of Last Bowel Movement 06/27/18 Narrative: GENERAL: Pleasant 53-year-old male, in bed appears in not acute distress, more awake and alert. CARDIOVASCULAR: Regular rate and rhythm. RESPIRATORY: No accessory muscle use. Clear to auscultation. Breath sounds equal bilaterally. GASTROINTESTINAL: Abdomen soft, non-tender, nondistended. Hepatic and splenic margins not palpable. MUSCULOSKELETAL: Extremities without clubbing, cyanosis, or edema. No obvious deformities. NEUROLOGICAL: Awake and alert. No obvious cranial nerve deficits. Motor grossly within normal limits. Normal speech. PSYCHIATRIC: Appropriate mood and affect; insight and judgment normal. Results Labs CBC & Chem 7: 06/30/18 06:45 06/30/18 06:45 Labs: Microbiology 06/27/18 14:45 Blood - Peripheral Aerobic Blood Culture - Preliminary No growth in 3 days 06/27/18 14:45 Blood - Peripheral Anaerobic Blood Culture - Preliminary No growth in 3 days 06/27/18 14:53 Blood - Peripheral Aerobic Blood Culture - Preliminary No growth in 3 days 06/27/18 14:53 Blood - Peripheral Anaerobic Blood Culture - Preliminary No growth in 3 days 06/27/18 18:00 Clean Catch Urine Urine Culture - Final 10-50,000 cfu/mL mixed gram positive david (probable contaminants) Assessment and Plan Plan Acute hypoxemic respiratory failure due to pneumonia ( community-acquired ) and COPD exacerbation keep on oxygen to keep O2sat > 90%- continue with IV antibiotics and neb treatment- continue IV steroids- will follow the cultures. -PE- on Coumadin with therapeutic INR will verify the home dosage and consult pharmacy to assist with dosing. Renal insufficiency with unknown duration start on IV fluid and monitor the renal function Rhabdomyolysis continue IV fluid- monitor the CPK level and renal function. CPK is trending down Drug urine screen on admission is negative. -PTSD resume the home meds.
[2018-06-30] MEDS: Sodium Chloride 0.45 % Inj 1,000 ML IV.CONT SCH (13:15)
--- NOTE | 2018-06-30 16:42 | P.PNIM ---
Subjective Interval history: Breathing better today saturating well on room air. Still with generalized pain in his muscles. No nausea today no vomiting able to eat. No chest pain or shortness of breath no cough. Physical Exam Vital signs: Vital Signs 06/29/18 16:50 06/29/18 17:00 06/29/18 18:00 Temperature Pulse Rate 72 60 56 L Respiratory Rate 16 Blood Pressure Pulse Oximetry 06/29/18 19:00 06/29/18 20:00 06/29/18 20:22 Temperature Pulse Rate 96 H 62 70 Respiratory Rate 16 18 Blood Pressure 143/79 H Pulse Oximetry 95 94 L 06/29/18 21:00 06/29/18 22:00 06/29/18 23:00 Temperature Pulse Rate 62 78 61 Respiratory Rate Blood Pressure Pulse Oximetry 06/29/18 23:31 06/30/18 00:00 06/30/18 01:00 Temperature 98.5 F Pulse Rate 72 56 L 70 Respiratory Rate 16 18 Blood Pressure 111/44 L Pulse Oximetry 95 06/30/18 02:00 06/30/18 03:00 06/30/18 04:00 Temperature Pulse Rate 70 66 62 Respiratory Rate Blood Pressure 144/78 H Pulse Oximetry 94 L 06/30/18 05:00 06/30/18 06:00 06/30/18 07:00 Temperature Pulse Rate 60 57 L 55 L Respiratory Rate Blood Pressure Pulse Oximetry 06/30/18 08:00 06/30/18 09:00 06/30/18 09:12 Temperature 98.3 F Pulse Rate 52 L 50 L 56 L Respiratory Rate 16 24 Blood Pressure 156/88 H Pulse Oximetry 95 94 L 06/30/18 10:00 06/30/18 11:00 06/30/18 12:00 Temperature 98.2 F Pulse Rate 52 L 59 L 59 L Respiratory Rate 16 Blood Pressure 157/85 H Pulse Oximetry 94 L 06/30/18 12:18 06/30/18 12:19 06/30/18 13:00 Temperature Pulse Rate 55 L 59 L Respiratory Rate 20 Blood Pressure Pulse Oximetry 96 06/30/18 14:00 06/30/18 16:00 Temperature 98.2 F Pulse Rate 53 L 53 L Respiratory Rate 16 Blood Pressure 164/91 H Pulse Oximetry 95 Intake & Output 06/29/18 06/30/18 06/30/18 18:59 06:59 18:59 Intake Total 1850 / 1850 1180 / 1180 1300 / 1300 Output Total 820 / 820 1060 / 1060 Balance 1030 / 1030 120 / 120 1300 / 1300 Weight 103.1 kg Intake: IV 1100 / 1100 700 / 700 1300 / 1300 NS Inj 1,000 ML @ 125 mls/hr IV 1000 / 1000 700 / 700 1300 / 1300 .CONT .Q8H [facility] Rx#:[id number] Azithromycin Inj 500 MG In NS 100 / 100 Inj 250 ML @ 250 mls/hr IV.SIG Q24H [facility] Rx#:[id number] Oral 750 / 750 480 / 480 Output: Urine 820 / 820 1060 / 1060 Other: Date of Last Bowel Movement 06/27/18 Narrative: GENERAL: Pleasant 53-year-old male, in bed appears in not acute distress, awake and alert. CARDIOVASCULAR: Regular rate and rhythm. RESPIRATORY: No accessory muscle use. Clear to auscultation. Breath sounds equal bilaterally. GASTROINTESTINAL: Abdomen soft, non-tender, nondistended. Hepatic and splenic margins not palpable. MUSCULOSKELETAL: Extremities without clubbing, cyanosis, or edema. No obvious deformities. NEUROLOGICAL: Awake and alert. No obvious cranial nerve deficits. Motor grossly within normal limits. Normal speech. PSYCHIATRIC: Appropriate mood and affect; insight and judgment normal. Results Labs CBC & Chem 7: 06/30/18 06:45 06/30/18 06:45 Labs: Microbiology 06/27/18 14:45 Blood - Peripheral Aerobic Blood Culture - Preliminary No growth in 3 days 06/27/18 14:45 Blood - Peripheral Anaerobic Blood Culture - Preliminary No growth in 3 days 06/27/18 14:53 Blood - Peripheral Aerobic Blood Culture - Preliminary No growth in 3 days 06/27/18 14:53 Blood - Peripheral Anaerobic Blood Culture - Preliminary No growth in 3 days Assessment and Plan Plan Acute hypoxemic respiratory failure due to pneumonia ( community-acquired ) and COPD exacerbation. Resolving keep on oxygen to keep O2sat > 90%- continue with IV antibiotics and neb treatment- continue IV steroids. Taper down steroids will follow the cultures, so far negative to date -PE- on Coumadin with therapeutic INR will verify the home dosage and consult pharmacy to assist with dosing. Renal insufficiency with unknown duration start on IV fluid and monitor the renal function Rhabdomyolysis continue IV fluid- monitor the CPK level and renal function. CPK is trending down Drug urine screen on admission is negative. Hyponatremia, hyperchloremia due to IV fluids. Change fluids to half normal saline. Continue to monitor kidney function and CPK. -PTSD resume the home meds. Discharge plan: Possible discharge in 1 or 2 days if improves and CPK improves as well
[2018-06-30] MEDS: Azithromycin Inj 500 MG in Sodium Chlor 0.9% Inj 250 ML IV.SIG SCH (16:53)
[2018-06-30] MEDS ORDERED: Bisacodyl 10 MG Supp RECTAL PRN (17:40)
[2018-06-30] MEDS: Senna/Docusate Sodium 8.6/50 MG Tablet PO SCH (20:23)
[2018-06-30 23:32] VITALS: RESP 16
[2018-07-01] MEDS: Sodium Chloride 0.45 % Inj 1,000 ML IV.CONT SCH (00:07)
[2018-07-01 06:15] LABS: Baso % (Auto) 0.1 % (0.0-2.0); Hematocrit 37.2 % (39.0-51.0); Hemoglobin 12.6 gm/dL (13.0-17.0); Lymph % (Auto) 7.8 % (9.0-44.0); Mean Corpuscular HGB Conc 33.8 % (32.0-36.0); Mean Corpuscular Hemoglobin 28.5 pg (27.0-34.0); Mean Corpuscular Volume 84.3 fL (80.0-100.0); Mean Platelet Volume 8.6 fL (7.0-11.0); Mono # (Auto) 0.8 th/mm3 (0.0-0.9); Mono % (Auto) 6.4 % (0.0-8.0); Neut # (Auto) 11.1 th/mm3 (1.8-7.7); Neut % (Auto) 85.7 % (16.0-70.0); Platelet Count 268 th/mm3 (150-450); Red Blood Count 4.41 mil/mm3 (4.50-5.90); Red Cell Distribution Width 13.3 % (11.6-17.2); White Blood Count 12.9 th/mm3 (4.0-11.0)
[2018-07-01 06:24] LABS: Prothrombin Time 30.4 sec (9.8-11.6)
[2018-07-01 06:44] LABS: Calcium 8.2 mg/dL (8.5-10.1); Potassium 3.9 meq/L (3.5-5.1)
[2018-07-01 07:04] LABS: CKMB Percent 0.3 % (0.0-4.0)
[2018-07-01 08:39] VITALS: PULSE 53
[2018-07-01] MEDS: Folic Acid 1 MG Tablet PO SCH (09:33)
[2018-07-01] MEDS: MethylPREDNISolone Sod Succinate Inj 125 MG/2 ML Vial IV.PUSH SCH (09:33)
[2018-07-01] MEDS: FLUoxetine 20 MG Capsule PO SCH (09:33)
[2018-07-01] MEDS: Senna/Docusate Sodium 8.6/50 MG Tablet PO SCH (09:33)
[2018-07-01 12:35] VITALS: BP 157/89; TEMP 98.4; O2SAT 94
--- NOTE | 2018-07-01 13:16 | P.PNIM ---
Subjective Interval history: Says he feels much better. Less wheezing , no cough . No fever or chills./ No n/v/d/c. Physical Exam Vital signs: Vital Signs 06/30/18 14:00 06/30/18 15:00 06/30/18 16:00 Temperature 98.2 F Pulse Rate 53 L 53 L 58 L Respiratory Rate 16 Blood Pressure 164/91 H Pulse Oximetry 95 06/30/18 17:00 06/30/18 17:37 06/30/18 18:00 Temperature Pulse Rate 54 L 72 65 Respiratory Rate 18 Blood Pressure Pulse Oximetry 06/30/18 19:00 06/30/18 20:00 06/30/18 20:24 Temperature 99.3 F Pulse Rate 62 54 L 66 Respiratory Rate 16 18 Blood Pressure 153/83 H Pulse Oximetry 95 06/30/18 21:00 06/30/18 23:00 06/30/18 23:31 Temperature 97.8 F Pulse Rate 59 L 67 72 Respiratory Rate 16 Blood Pressure 148/78 H Pulse Oximetry 92 L 07/01/18 03:00 07/01/18 04:00 07/01/18 04:43 Temperature 97.8 F Pulse Rate 53 L 72 68 Respiratory Rate 16 16 Blood Pressure 156/86 H Pulse Oximetry 95 07/01/18 07:00 07/01/18 07:35 07/01/18 07:40 Temperature Pulse Rate 52 L 50 L Respiratory Rate 16 Blood Pressure Pulse Oximetry 95 07/01/18 08:00 07/01/18 08:38 07/01/18 11:00 Temperature 98.2 F Pulse Rate 53 L 57 L Respiratory Rate 16 Blood Pressure 159/96 H 163/92 H Pulse Oximetry 96 07/01/18 11:24 07/01/18 12:00 Temperature 98.4 F Pulse Rate 53 L 53 L Respiratory Rate 16 16 Blood Pressure 157/89 H Pulse Oximetry 94 L Intake & Output 06/30/18 07/01/18 07/01/18 18:59 06:59 18:59 Intake Total 2550 / 2550 1280 / 1280 Output Total 1300 / 1300 1325 / 1325 Balance 1250 / 1250 -45 / -45 Weight 100.4 kg Intake: IV 1650 / 1650 800 / 800 NS Inj 1,000 ML @ 125 mls/hr IV 1300 / 1300 .CONT .Q8H [facility] Rx#:[id number] 1/2 Normal Saline Inj 1,000 ML 800 / 800 @ 100 mls/hr IV.CONT .Q10H [facility] Rx#:[id number] Azithromycin Inj 500 MG In NS 250 / 250 Inj 250 ML @ 250 mls/hr IV.SIG Q24H [facility] Rx#:[id number] Rocephin Inj 1,000 MG In NS Inj 100 / 100 100 ML @ 200 mls/hr IV.SIG Q24H [facility] Rx#:[id number] Oral 900 / 900 480 / 480 Output: Urine 1300 / 1300 1325 / 1325 Narrative: GENERAL: Pleasant 53-year-old male, in bed appears in not acute distress, awake and alert. CARDIOVASCULAR: Regular rate and rhythm. RESPIRATORY: No accessory muscle use. Clear to auscultation. Breath sounds equal bilaterally. GASTROINTESTINAL: Abdomen soft, non-tender, nondistended. Hepatic and splenic margins not palpable. MUSCULOSKELETAL: Extremities without clubbing, cyanosis, or edema. No obvious deformities. NEUROLOGICAL: Awake and alert. No obvious cranial nerve deficits. Motor grossly within normal limits. Normal speech. PSYCHIATRIC: Appropriate mood and affect; insight and judgment normal. Results Labs CBC & Chem 7: 07/01/18 04:53 07/01/18 04:53 Labs: Microbiology 06/27/18 14:45 Blood - Peripheral Aerobic Blood Culture - Preliminary No growth in 4 days 06/27/18 14:45 Blood - Peripheral Anaerobic Blood Culture - Preliminary No growth in 4 days 06/27/18 14:53 Blood - Peripheral Aerobic Blood Culture - Preliminary No growth in 4 days 06/27/18 14:53 Blood - Peripheral Anaerobic Blood Culture - Preliminary No growth in 4 days Assessment and Plan Plan Acute hypoxemic respiratory failure due to pneumonia ( community-acquired ) and COPD exacerbation. Resolving keep on oxygen to keep O2sat > 90%- continue with IV antibiotics and neb treatment- continue IV steroids. Taper down steroids will follow the cultures, so far negative to date -PE- on Coumadin with therapeutic INR will verify the home dosage and consult pharmacy to assist with dosing. Renal insufficiency with unknown duration start on IV fluid and monitor the renal function Rhabdomyolysis continue IV fluid- monitor the CPK level and renal function. CPK is trending down Drug urine screen on admission is negative. Hyponatremia, hyperchloremia due to IV fluids. Change fluids to half normal saline. Monitor lytes. Continue to monitor kidney function and CPK. -PTSD resume the home meds. Discharge plan: Possible discharge in 1 or 2 days if improves, and lytes, CPK improves as well
--- NOTE | 2018-07-01 13:44 | P.DS ---
DS: Providers Date of admission: 06/27/18 16:26 Primary care physician: [facility] Brief History from admission: patient is a 53 y/o male with history of PE,CAD, COPD,PTSD who presented to ER with shortness of breath. he says that his sob started yesterday and got worse. he says that he has a nebulizer but it's broken. he has productive cough of yellowish sputum. he had a low grade fever at presentation. he denies any chest pain. he says that he was intubated in the past because of his COPD.per ER his pulse ox was about 88% at the time of presentation. DS: Summary Acute hypoxemic respiratory failure due to pneumonia ( community-acquired ) and COPD exacerbation. Resolved. Currently satting well on room air. keep on oxygen to keep O2sat > 90%- Received IV antibiotics and neb treatment - Taper down steroids follow the cultures, so far negative to date -PE- on Coumadin with therapeutic INR will verify the home dosage and consult pharmacy to assist with dosing. Renal insufficiency with unknown duration start on IV fluid and monitor the renal function Kidney function improved Rhabdomyolysis Received IV fluids- monitor the CPK level and renal function. Tolerates PO intake. Encourage PO intake. Lytes improved. CPK is trending down Drug urine screen on admission is negative. Hyponatremia, hyperchloremia due to IV fluids. Change fluids to half normal saline. Monitor lytes. Continue to monitor kidney function and CPK. -PTSD resume the home meds. Imprpved DC home in [address] to follow up as OP with PCP and consultants Time Spent with Patient Total time spent providing and/or coordinating discharge services: > 30 min Exam Narrative Exam Narrative: GENERAL: Pleasant 53-year-old male, in bed appears in not acute distress, awake and alert. CARDIOVASCULAR: Regular rate and rhythm. RESPIRATORY: No accessory muscle use. Clear to auscultation. Breath sounds equal bilaterally. GASTROINTESTINAL: Abdomen soft, non-tender, nondistended. Hepatic and splenic margins not palpable. MUSCULOSKELETAL: Extremities without clubbing, cyanosis, or edema. No obvious deformities. NEUROLOGICAL: Awake and alert. No obvious cranial nerve deficits. Motor grossly within normal limits. Normal speech. PSYCHIATRIC: Appropriate mood and affect; insight and judgment normal. Results Labs on day of discharge: Labs from last 24 hours 07/01/18 07/01/18 07/01/18 04:53 04:53 04:52 WBC 12.9 H RBC 4.41 L Hgb 12.6 L Hct 37.2 L MCV 84.3 MCH 28.5 MCHC 33.8 RDW 13.3 Plt Count 268 MPV 8.6 Prelim Diff (Auto) Slide review pending Neut % (Auto) 85.7 H Lymph % (Auto) 7.8 L [place] % (Auto) 6.4 Eos % (Auto) 0.0 Baso % (Auto) 0.1 Neut # (Auto) 11.1 H Lymph # (Auto) 1.0 [place] # (Auto) 0.8 Eos # (Auto) 0.0 Baso # (Auto) 0.0 WBC Differential . Diff Scan Auto diff confirmed Differential Comment . PT 30.4 H D INR 3.0 Sodium 146 H Potassium 3.9 Chloride 113 H Carbon Dioxide 26.0 Anion Gap 7 BUN 22 H Creatinine 1.17 Estimated GFR 65 L Random Glucose 107 H Calcium 8.2 L Total Creatine Kinase 788 H CK-MB (CK-2) 2.0 CK-MB (CK-2) % 0.3 Preliminary micro results at discharge 06/27/18 14:45 Aerobic Blood Culture - Preliminary Blood - Peripheral No growth in 4 days Anaerobic Blood Culture - Preliminary No growth in 4 days 06/27/18 14:53 Aerobic Blood Culture - Preliminary Blood - Peripheral No growth in 4 days Anaerobic Blood Culture - Preliminary No growth in 4 days Impressions ITS Impressions Chest X-Ray 06/27/18 13:23 CONCLUSION: Patchy airspace disease right lower lobe suspicious for inflammatory process Discharge Plan Discharge Disposition Patient Disposition: Discharge Home Discharge Condition Condition: Fair Discharge Order Discharge Orders: Discharge Order (Routine); Ordered 07/01/18 Ordered By: Alicia Jordan Discharge Details Anticipated Discharge Date: 07/01/18 Physicians Team Primary Care Provider: [facility] Attending Provider: Alicia Jordan Rxs /Orders / Referrals /Forms Prescriptions: New prednisone 50 mg Tablet 50 mg PO DAILY Qty: 3 RF: 0 cefuroxime axetil 500 mg tablet 500 mg PO BID Qty: 10 RF: 0 Continue warfarin 10 mg Tablet See Label Instructions .ROUTE .COMPLEX RF: 0 thiamine HCl (vitamin B1) 100 mg Tablet 100 mg PO DAILY RF: 0 folic acid 1 mg Tablet 1 mg PO DAILY RF: 0 fluoxetine 20 mg Capsule 40 mg PO DAILY RF: 0 prazosin 2 mg Capsule 2 mg PO HS RF: 0 quetiapine 400 mg Tablet 400 mg PO HS RF: 0 warfarin 7.5 mg Tablet 7.5 mg PO DAILY RF: 0 Referrals: [facility] [Primary Care Provider] - See Instructions Discharge Instructions Patient Printed Instructions: Cefuroxime (By mouth), Prednisone (By mouth), Pulmonary Embolism (DC), Rhabdomyolysis (DC), COPD (Chronic Obstructive Pulmonary Disease) (DC), Pneumonia (DC) Status ED Status: Left Department Discharge Information Discharge Date/Time: 07/01/18 14:48
== END 2018-07-01 14:48 | disposition home or self-care (01) | DRG 193 ==
LOC: NEPD 13:19 → NEDA 16:26 → HCIS 21:01
PROVIDERS: ADMIT Hospitalist; ATTEND Hospitalist
CPT/HCPCS: 71010; 71045; 76937; 80048; 80053; 80307; 81001; 82550; 82552; 83520; 83605; 83690; 83880; 84484; 85025; 85610; 85730; 87040; 87086; 90765; 90775; 93005; 94640; 94664; 94665; 96365; 96375; 99291; J0456; J0696; J1200; J2405; J2765; J2930; J3475; J7030; J7040; J7050